=== PATIENT | female | born 1940 | race African-American/Black ===

== ENCOUNTER → 2017-07-08 | Outpatient (CLI) | payer MEDICARE, OTHER ==
--- NOTE | 2017-07-08 14:08 | KCIC ---
Bone mineral density study dated 07/08/2017. Indication: Postmenopausal screening. Findings: Lower lumbar spine: BMD (g/cm2): Total L1-L4.......... 1.102. . T-Score: Total L1-L4.................... 0.5. Z-Score: Total L1-L4 ................... 2.2. Left Hip: BMD (g/cm2): Total .......... 0.819. . T-Score: Total .................... -1.0. Z-Score: Total ................... 0.0. World Health Organization criteria for BMD interpretation classify patients as Normal (T-score at or above -1.0), Osteopenic (T-score between -1.0 and -2.5), or Osteoporotic (T-score at or below -2.5). Impression: Bone mineral density values are within the range of normal. Electronically signed by: Allen Russell MD (07/08/2017 2:05 PM) [facility]
== END | disposition home or self-care (01) ==
LOC: KCIC DEXA 12:45
PROVIDERS: ATTEND Family Medicine
DX: Z91.89 Other specified personal risk factors, not elsewhere classified (principal); Z78.0 Asymptomatic menopausal state
CPT/HCPCS: 77080

== ENCOUNTER 2021-10-23 17:35 | Emergency (ER) | payer MEDICARE, OTHER ==
[~2021-10-23] VITALS: Ht 167.6 cm; Wt 71.0 kg
[2021-10-23 17:55] VITALS: BP 172/72
[2021-10-23] MEDS ORDERED: KETOROLAC 30 MG/ML VIAL. IM ONE (18:30)
--- NOTE | 2021-10-23 19:23 | RAD ---
Exam: Pelvis with bilateral hips 2 views INDICATION: Pain, difficulty standing TECHNIQUE: Frontal view of pelvis with frontal and frog-leg lateral views of the right and left hip Comparisons: None FINDINGS: Bone mineralization is normal. No acute or healed fractures. Soft tissues are unremarkable. Joint spa nanette are well-maintained. IMPRESSION: No acute osseous abnormality. If the patient is acutely unable to bear weight consider cross-sectiona l imaging to evaluate for occult fracture. Electronically signed by: Tomer Doyle MD (10/23/2021 7:20 PM) [facility]
[2021-10-23] MEDS ORDERED: NAPR-514 PO (19:40)
--- NOTE | 2021-10-23 19:40 | PHYS DOC ---
Past Medical History Past Medical History: No Pertinent History Past Surgical History: Knee Replacement Additional Past Surgical Histo: ANKLE SX, ROTATOR CUFF SX Smoking Status: Never Smoker Alcohol Use: None General Adult EDM: Chief Complaint: LOWER EXT PAIN HPI: HPI: Patient is a 81 year old female without significant PMHx who presents with bilateral proximal lower extremity pain. Patient states the pain began in mid July and is intermittent. She states the pain is mostly along the lateral aspect of her thighs but does occasionally radiate to her buttocks. Patient reports it is sometimes painful to stand and she feels more comfortable sitting or laying down when the pain "gets bad." Patient has been evaluated at her primary doctor's office as well as the [facility]. All of her testing has come back normal. She has been provided with celebrex as well as muscle relaxers without significant relief. Patient denies trauma or other injury, saddle anesthesia, incontinence to urine or stool, paresthesias, or gait disturbances. Review of Systems: Review of Systems: ROS negative or noncontributory except as mentioned in HPI. Heart Score: C/O Chest Pain: No Current Medications: Current Medications Medications (Trade) Dose Ordered Sig/Gino Start Time Stop Time Status Last Admin Dose Admin Ketorolac Tromethamine (Toradol 30mg Vial) 30 mg 1X ONCE 10/23/21 18:30 10/23/21 18:31 DC 10/23/21 18:34 30 MG Allergies: Allergies: Allergies Coded Allergies Type Severity Reaction Last Updated Verified No Known Drug Allergies 10/23/21 No Physical Exam: PE: Constitutional: Well developed, well nourished, no acute distress, non-toxic appearance. HENT: Normocephalic, atraumatic, bilateral external ears normal, oropharynx moist, nose normal. Eyes: EOMI, conjunctiva normal, no discharge. Neck: Normal range of motion, no stridor. Skin: Warm, dry, no erythema, no rash. Old scars on bilateral knees consistent with hx bilateral replacement. Back: No stepoff, no tenderness. Extremities: No tenderness, no cyanosis, no clubbing, ROM intact, no edema. Neurologic: Alert and oriented x4, no focal deficits noted, straight leg raise test negative bilaterally. LE strength 5/5 bilaterally to hip flexion/extension/adduction/abduction, knee flexion/extension, ankle flexion/extension/inversion/eversion, great toe dorsiflexion. Current Patient Data: Vital Signs: Vital Signs Date Time Temp Pulse Resp B/P (MAP) Pulse Ox O2 Delivery O2 Flow Rate FiO2 10/23/21 19:35 98.0 80 16 136/65 (88) 98 Room Air 98.0 10/23/21 17:55 98.7 75 12 172/72 (105) 98 Room Air 98.7 Radiology/Procedures: Radiology/Procedures: PROCEDURE: HIP BILATERAL WITH PELVIS Exam: Pelvis with bilateral hips 2 views INDICATION: Pain, difficulty standing TECHNIQUE: Frontal view of pelvis with frontal and frog-leg lateral views of the right and left hip Comparisons: None FINDINGS: Bone mineralization is normal. No acute or healed fractures. Soft tissues are unremarkable. Joint spaces are well-maintained. IMPRESSION: No acute osseous abnormality. If the patient is acutely unable to bear weight consider cross-sectional imaging to evaluate for occult fracture. Electronically signed by: Tomer Doyle MD (10/23/2021 7:20 PM) [facility] Course & Med Decision Making: Course & Med Decision Making Pertinent Labs and Imaging studies reviewed. (See chart for details) Patient is an 81-year-old female who presents with bilateral lower extremity pain. Her pain is mostly in the lateral aspect of her thigh and her buttock. She denies trauma/other injury and history of arthritis. Work-up today will include x-rays of bilateral hips and Toradol for pain management. Patient mention to me that she had plates placed in her ankle in . She states she was told that the plates would eventually be removed, but never happened. She expresses desire for follow-up. On reevaluation, patient states that the Toradol was very effective in relieving her pain. She is instructed to take Aleve daily each morning. Patient agrees to follow-up with her primary care doctor. She was also provided with follow-up for rheumatology as well as orthopedics. Patient provided with return precautions. She understands and is agreeable to discharge plan. Dragon Disclaimer: Dragon Disclaimer: This electronic medical record was generated, in whole or in part, using a voice recognition dictation system. Departure Departure Impression: Primary Impression: Bilateral hip pain Disposition: HOME / SELF CARE / HOMELESS Condition: IMPROVED Referrals: NUSRAT DANIELS MD (PCP) CORTES EVANS MD, ZHIPENG DPBuddy Patient Instructions: Hip Pain Additional Instructions: EMERGENCY DEPARTMENT GENERAL DISCHARGE INSTRUCTIONS Thank you for coming to [facility] Emergency Department (ED) to day and trusting us with you care. We trust that you had a positive experience in our Emergency Department. If you wish to speak to the department management, you may call the director at . YOUR FOLLOW UP INSTRUCTIONS ARE FOLLOWS: 1. Follow up with your primary care doctor. If you do not have a primary doctor, please ask for a resource list of physicians or clinics that may be able to assist you with follow up care. 2. The emergency provider has interpreted your imaging studies, if any were ordered. The radiology contract administration specialist also reviewed them. If there is a change in the findings, you will be notified in 48 hours when at all possible. 3. If a lab test or culture has been done, your results will be reviewed and you will be notified if you need a change in treatment. 4. Follow instructions verbalized to you and refer to the printouts if needed. ADDITIONAL INSTRUCTIONS AND INFORMATION: 1. Your care today has been supervised by a physician who is specially trained in emergency care. Many problems require more than one evaluation for a complete diagnosis and treatment. We recommend that you schedule your follow up appointment as recommended to ensure complete treatment of you illness or injury. If you are unable to obtain follow up care and continue to have a problem, or if your condition worsens, we recommend that you return to the ED. 2. We are not able to safely determine your condition over the phone nor are we able to give sound medical advice over the phone. For these safety reasons, if you call for medical advice we will ask you to come to the ED for further evaluation. 3. If you have any questions regarding these discharge instructions please call the ED at . SAFETY INFORMATION: In the interest of safety, wellness, and injury prevention; we encourage you to wear your seat belt, if you smoke; quite smoking, and we encourage family to use a protective helmet for bicycling and other sporting events that present an increased risk for head injury. IF YOUR SYMPTOMS WORSEN OR NEW SYMPTOMS DEVELOP, OR YOU HAVE CONCERNS ABOUT YOUR CONDITION; OR IF YOUR CONDITION WORSENS WHILE YOU ARE WAITING FOR YOUR FOLLOW UP APPOINTMENT; EITHER CONTACT YOUR PRIMARY CARE DOCTOR, THE PHYSICIAN WHOSE NAME AND NUMBER YOU WERE GIVEN, OR RETURN TO THE ED IMMEDIATELY. Scripts Naproxen (NAPROXEN) 500 Mg Tablet 500 MG PO DAILY, #30 TAB Prov: MARLENE HENNESSY 10/23/21 MARLENE HENNESSY Oct 23, 2021 19:40
== END 2021-10-23 19:45 | disposition home or self-care (01) ==
LOC: ER 17:35
DX: M25.552 Pain in left hip (principal); M25.551 Pain in right hip
CPT/HCPCS: 73521; 96372; 99283; J1885